=== PATIENT | female | born 1965 | race Caucasian/White ===

== ENCOUNTER 2017-06-22 10:03 | Emergency (ER) | payer BC ==
[~2017-06-22] VITALS: Ht 160 cm; Wt 100.0 kg
[~2017-06-22 10:03] MED LIST: ASPIR-LOW81 MG PO; CINNAMON500 MG PO; CLARITIN10 M3 PO; DICLOFENAC SOD100 MG PO; JANUMET 50/11 TABLET PO; LANTUS 3 M100 UNITS1 SC; LISINOPRIL10 MG PO; MONTELUKAST SOD10 MG PO; OMEPRAZOLE20 MG PO; SIMVASTATIN20 MG PO; VITAMIN D5000 UNIT PO
[2017-06-22 10:59] LABS: HEMATOCRIT 37.7 % (36.0-46.0); HEMOGLOBIN 13.4 G/DL (11.9-15.5); MCH 30.9 PG (29.0-34.0); MCHC 35.5 G/DL (30.0-36.0); MCV 86.9 FL (83-99); PLATELET COUNT 250 K/uL (156-360); RBC DIS.WIDTH-CV 11.9 % (11.8-14.6); RBC DIS.WIDTH-SD 38.5 % (39-53); RED BLOOD COUNT 4.34 M/uL (3.80-5.20)
[2017-06-22 11:09] LABS: CHLORIDE 107 mEq/L (99-109); POTASSIUM 3.8 mEq/L (3.7-5.4); SODIUM 139 mEq/L (136-147)
[2017-06-22 11:11] LABS: GLUCOSE 68 mg/dL (70-99)
[2017-06-22 11:15] LABS: CREATININE 0.9 mg/dL (0.6-1.3); GFR ESTIMATE (CALCULATED) > 59 mL/min/
[2017-06-22 11:16] LABS: UREA NITROGEN (BUN) 31 mg/dL (9-23)
[2017-06-22 11:21] LABS: TROP-I INTERPRETATION NEGATIVE; TROPONIN-I < 0.01 ng/mL (0.0-0.30)
[2017-06-22 15:55] VITALS: BP 146/77
== END 2017-06-22 15:59 | disposition home or self-care (01) ==
LOC: EME 10:03
PROVIDERS: Emergency Medicine
DX: R42 Dizziness and giddiness (principal); R00.2 Palpitations; K21.9 Gastro-esophageal reflux disease without esophagitis; I10 Essential (primary) hypertension; E11.9 Type 2 diabetes mellitus without complications; E78.5 Hyperlipidemia, unspecified; M19.90 Unspecified osteoarthritis, unspecified site; Z79.84 Long term (current) use of oral hypoglycemic drugs; Z79.82 Long term (current) use of aspirin; Z90.49 Acquired absence of other specified parts of digestive tract
CPT/HCPCS: 71275; 80048; 82948; 84484; 85027; 85379; 93005; 99281; 99285; J2060; J7030

== ENCOUNTER 2017-07-25 21:43 | Emergency (ER) | payer BC ==
[~2017-07-25] VITALS: Ht 160 cm; Wt 102.1 kg
[~2017-07-25 21:43] MED LIST changes: +VITAMIN D32000 UNI1 PO; -VITAMIN D5000 UNIT PO
[2017-07-26 00:06] LABS: HEMATOCRIT 36.8 % (36.0-46.0); HEMOGLOBIN 12.6 G/DL (11.9-15.5); MCHC 34.2 G/DL (30.0-36.0); MCV 90.6 FL (83-99); PLATELET COUNT 188 K/uL (156-360); RBC DIS.WIDTH-SD 42.7 % (39-53); RED BLOOD COUNT 4.06 M/uL (3.80-5.20); WHITE BLOOD COUNT 9.6 K/uL (4.1-10.2)
[2017-07-26 00:20] LABS: ALBUMIN 3.9 g/dL (3.2-4.8); CHLORIDE 102 mEq/L (99-109)
[2017-07-26 00:21] LABS: POTASSIUM 3.7 mEq/L (3.7-5.4); SODIUM 136 mEq/L (136-147)
[2017-07-26 00:23] LABS: GLUCOSE 200 mg/dL (70-99); TOTAL PROTEIN 6.6 g/dL (6.4-8.3)
[2017-07-26 00:25] LABS: TOTAL BILIRUBIN 0.2 mg/dL (0.0-1.0)
[2017-07-26 00:26] LABS: ALKALINE PHOSPHATASE 50 IU/L (3-129); CREATININE 0.8 mg/dL (0.6-1.3); GFR ESTIMATE (CALCULATED) > 59 mL/min/
[2017-07-26 00:28] LABS: AST (GOT) 26 IU/L (2-34); TROP-I INTERPRETATION NEGATIVE; TROPONIN-I < 0.01 ng/mL (0.0-0.30); UREA NITROGEN (BUN) 17 mg/dL (9-23)
[2017-07-26 00:29] LABS: ALT (GPT) 58 IU/L (3-49)
[2017-07-26] MEDS ORDERED: TESSALON200 MG PO (00:54)
[2017-07-26] MEDS ORDERED: ROBITUSSIN AC,T10 ML PO (00:54)
[2017-07-26] MEDS ORDERED: NEBULIZER MC (00:54)
[2017-07-26] MEDS ORDERED: PROVENTIL,2.5 MG/3 M IH (00:54)
[2017-07-26 01:06] VITALS: BP 125/96
== END 2017-07-26 01:08 | disposition home or self-care (01) ==
LOC: EME 21:43
PROVIDERS: Physician Assistant
DX: J20.9 Acute bronchitis, unspecified (principal); J98.01 Acute bronchospasm; M19.90 Unspecified osteoarthritis, unspecified site; K21.9 Gastro-esophageal reflux disease without esophagitis; I10 Essential (primary) hypertension; E78.5 Hyperlipidemia, unspecified; E11.9 Type 2 diabetes mellitus without complications; Z79.4 Long term (current) use of insulin; Z79.84 Long term (current) use of oral hypoglycemic drugs
CPT/HCPCS: 71046; 80053; 83880; 84484; 85027; 93005; 94640; 94640 76; 99281; 99285; J1100; J7030

== ENCOUNTER 2017-07-29 19:41 | Observation (INO) | payer BC ==
[~2017-07-29] VITALS: Ht 160 cm; Wt 102.2 kg
[~2017-07-29 19:41] MED LIST changes: +NEBULIZER MC; +PROVENTIL,2.5 MG/3 M IH; +ROBITUSSIN AC,T10 ML PO; +TESSALON200 MG PO
[2017-07-29 20:19] LABS: HEMATOCRIT 36.1 % (36.0-46.0); HEMOGLOBIN 12.6 G/DL (11.9-15.5); MCH 31.2 PG (29.0-34.0); MCHC 34.9 G/DL (30.0-36.0); MCV 89.4 FL (83-99); PLATELET COUNT 213 K/uL (156-360); RBC DIS.WIDTH-CV 12.9 % (11.8-14.6); RBC DIS.WIDTH-SD 42.4 % (39-53); RED BLOOD COUNT 4.04 M/uL (3.80-5.20); WHITE BLOOD COUNT 8.6 K/uL (4.1-10.2)
[2017-07-29 20:31] LABS: CHLORIDE 107 mEq/L (99-109); POTASSIUM 3.7 mEq/L (3.7-5.4); SODIUM 138 mEq/L (136-147)
[2017-07-29 20:33] LABS: GLUCOSE 83 mg/dL (70-99)
[2017-07-29 20:37] LABS: GFR ESTIMATE (CALCULATED) > 59 mL/min/
[2017-07-29 20:38] LABS: UREA NITROGEN (BUN) 26 mg/dL (9-23)
[2017-07-29 22:05] LABS: TROP-I INTERPRETATION NEGATIVE; TROPONIN-I 0.03 ng/mL (0.0-0.30)
[2017-07-29] MEDS ORDERED: ALBUTEROL2.5 MG/3 M IH (23:50)
[2017-07-29] MEDS ORDERED: OLOPATADINE HCL5 ML BOTH EYES (23:51)
[2017-07-29] MEDS ORDERED: METOPROLOL SUCC25 MG PO (23:52)
[2017-07-29] MEDS ORDERED: JANUMET 50/51 TABLET PO (23:53)
[2017-07-29] MEDS ORDERED: ASMANEX TW200 MICRO1 IH (23:53)
[2017-07-29] MEDS ORDERED: CODEINE-GUAIFE120 ML PO (23:55)
[2017-07-29] MEDS ORDERED: BENZONATATE200 MG PO (23:55)
[2017-07-29] MEDS ORDERED: BASAGLAR K100 UNIT/1 SC (23:57)
[2017-07-29] MEDS ORDERED: NOVOLOG PE100 UNITS/ SC (23:58)
[2017-07-30 02:05] VITALS: BP 120/66
[2017-07-30 04:24] VITALS: BP 102/56
[2017-07-30 05:49] LABS: HEMATOCRIT 32.4 % (36.0-46.0); MCH 30.6 PG (29.0-34.0); MCV 90.3 FL (83-99); PLATELET COUNT 168 K/uL (156-360); RBC DIS.WIDTH-CV 12.8 % (11.8-14.6); RBC DIS.WIDTH-SD 42.5 % (39-53); RED BLOOD COUNT 3.59 M/uL (3.80-5.20); WHITE BLOOD COUNT 6.3 K/uL (4.1-10.2)
[2017-07-30 06:11] LABS: CHLORIDE 104 MEQ/L (99-109); CREATININE 0.7 MG/DL (0.6-1.3); GFR ESTIMATE (CALCULATED) > 59 mL/min/; POTASSIUM 3.9 MEQ/L (3.7-5.4); SODIUM 136 MEQ/L (136-147); UREA NITROGEN (BUN) 20 mg/dL (9-23)
[2017-07-30 06:13] LABS: GLUCOSE 140 mg/dL (70-99)
[2017-07-30 06:16] LABS: TROP-I INTERPRETATION NEGATIVE; TROPONIN-I < 0.01 ng/mL (0.0-0.30)
[2017-07-30 07:45] VITALS: BP 115/60
[2017-07-30 12:35] LABS: TROP-I INTERPRETATION NEGATIVE; TROPONIN-I < 0.01 ng/mL (0.0-0.30)
[2017-07-30 12:51] VITALS: BP 103/59
[2017-07-30] MEDS ORDERED: TYLENOL WITH C1 EACH PO (14:04)
== END 2017-07-30 15:40 | disposition home or self-care (01) ==
LOC: EME 19:41 → EDOF 07-30 00:26 → ENRESERV 07-30 00:27 → EDOF 07-30 01:11 → 5WEST 07-30 01:45
PROVIDERS: Internal Medicine; Nurse Practitioner Adult Health
DX: R07.9 Chest pain, unspecified (principal); R06.02 Shortness of breath; R09.02 Hypoxemia; Z87.01 Personal history of pneumonia (recurrent); I49.3 Ventricular premature depolarization; E11.9 Type 2 diabetes mellitus without complications; I10 Essential (primary) hypertension; E78.5 Hyperlipidemia, unspecified; E66.9 Obesity, unspecified; K21.9 Gastro-esophageal reflux disease without esophagitis; Z90.49 Acquired absence of other specified parts of digestive tract; Z79.4 Long term (current) use of insulin; Z79.82 Long term (current) use of aspirin
CPT/HCPCS: 71275; 80048; 82948; 84484; 85027; 93005; 93306; 94640; 94640 76; 99202; 99281; 99284; G0378; J7030

== ENCOUNTER 2017-09-11 10:54 | Day surgery (SDC) | payer BC ==
[~2017-09-11] VITALS: Ht 160 cm; Wt 100.0 kg
[~2017-09-11 10:54] MED LIST changes: +ALBUTEROL2.5 MG/3 M IH; +ASMANEX TW200 MICRO1 IH; +BASAGLAR K100 UNIT/1 SC; +BENZONATATE200 MG PO; +CODEINE-GUAIFE120 ML PO; +JANUMET 50/51 TABLET PO; +METOPROLOL SUCC25 MG PO; +NOVOLOG PE100 UNITS/ SC; +OLOPATADINE HCL5 ML BOTH EYES; +TYLENOL WITH C1 EACH PO
[2017-09-11] MEDS ORDERED: ASPIR 8181 M1 PO (11:25)
== END 2017-09-11 17:37 | disposition home or self-care (01) ==
LOC: CATH 10:54
PROVIDERS: Internal Medicine Cardiovascular Disease
DX: I25.10 Atherosclerotic heart disease of native coronary artery without angina pectoris (principal); E66.01 Morbid (severe) obesity due to excess calories; Z68.41 Body mass index [BMI] 40.0-44.9, adult; I10 Essential (primary) hypertension; E78.5 Hyperlipidemia, unspecified; E11.9 Type 2 diabetes mellitus without complications; Z79.82 Long term (current) use of aspirin
CPT/HCPCS: 82948; C1750; C1769; C1887; J1644; J2250; J3010; J7040

== ENCOUNTER 2018-02-17 21:57 | Emergency (ER) | payer BC ==
[~2018-02-17] VITALS: Ht 160 cm; Wt 100.0 kg
[~2018-02-17 21:57] MED LIST changes: +ASPIR 8181 M1 PO
[2018-02-17 22:44] LABS: HEMATOCRIT 33.1 % (36.0-46.0); HEMOGLOBIN 11.6 G/DL (11.9-15.5); MCH 31.4 PG (29.0-34.0); MCV 89.5 FL (83-99); PLATELET COUNT 191 K/uL (156-360); RBC DIS.WIDTH-CV 12.2 % (11.8-14.6); RBC DIS.WIDTH-SD 39.6 % (39-53); WHITE BLOOD COUNT 8.6 K/uL (4.1-10.2)
[2018-02-17 22:49] LABS: APPEARANCE CLEAR ((CLEAR)); BILIRUBIN NEGATIVE; BLOOD SMALL; COLOR AMBER ((YELLOW)); GLUCOSE (STRIP) >=500; KETONES 5; LEUKOCYTES SMALL; NITRITE POSITIVE; PROTEIN (STRIP) 30; SPECIFIC GRAVITY 1.012 (1.000-1.030)
[2018-02-17 22:55] LABS: BACTERIA NONE SEEN /HPF; EPITHELIAL CELLS 1+ /HPF; MUCUS TRACE /LPF; UCUL ADDED? YES; WHITE BLOOD CELLS 15-20 /HPF (0-5)
[2018-02-17 22:58] LABS: CHLORIDE 105 mEq/L (99-109); POTASSIUM 4.9 mEq/L (3.7-5.4); SODIUM 138 mEq/L (136-147)
[2018-02-17 23:00] LABS: GLUCOSE 251 mg/dL (70-99)
[2018-02-17 23:04] LABS: GFR ESTIMATE (CALCULATED) > 59 mL/min/
[2018-02-17 23:05] LABS: UREA NITROGEN (BUN) 18 mg/dL (9-23)
[2018-02-18] MEDS ORDERED: KEFLEX500 MG PO (01:13)
[2018-02-18] MEDS ORDERED: NAPROSYN500 MG PO (01:13)
[2018-02-18] MEDS ORDERED: PYRIDIUM200 MG PO (01:13)
[2018-02-18 01:23] VITALS: BP 149/81
== END 2018-02-18 01:23 | disposition home or self-care (01) ==
LOC: EME 21:57
DX: N39.0 Urinary tract infection, site not specified (principal); B96.1 Klebsiella pneumoniae [K. pneumoniae] as the cause of diseases classified elsewhere; E11.9 Type 2 diabetes mellitus without complications; E78.5 Hyperlipidemia, unspecified; M19.90 Unspecified osteoarthritis, unspecified site; Z79.84 Long term (current) use of oral hypoglycemic drugs; Z79.82 Long term (current) use of aspirin; Z90.49 Acquired absence of other specified parts of digestive tract
CPT/HCPCS: 80048; 81003; 85027; 87077; 87086; 87186; 99281; 99284; J0696